=== PATIENT | male | born 1995 | race Caucasian/White ===

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

== ENCOUNTER → 2017-09-06 | Outpatient (CLI) | payer OTHER ==
[~2017-09-06] MED LIST: CETI10TA84 PO
--- NOTE | 2017-09-06 15:04 | DIAGNOSTIC IMAGING REPORT ---
AP VIEW OF BOTH WRISTS; 4 VIEWS RIGHT WRIST CLINICAL HISTORY: Right wrist pain an injury. FINDINGS: An AP clenched view of both wrists with 4 additional views of the right wrist are obtained. No prior studies are available for comparison at the time of dictation. The skeletal structures are well mineralized. No fracture is seen. The joint spaces of the right wrist are well-maintained. Mild soft tissue swelling is noted Over the right wrist. Survey images of the left wrist on the frontal view show no abnormality. IMPRESSION: Mild soft tissue swelling with no radiographic evidence of right wrist fracture. If there is strong clinical concern for occult fracture consider short-term radiographic follow-up. Electronically signed by: Km Churchill M.D. 09/06/2017 3:03 PM Dictated Date/Time: 09/06/2017 3:00 PM
--- NOTE | 2017-09-09 10:36 | CODING QUERY NO DIAGNOSIS ---
: 97 TREATMENT RENDERED WITHOUT A DIAGNOSIS To promote full compliance with coding requirements relating to patient care, physician participation is requested in all cases of varnish maker uncertainty. Please assist us with providing a diagnosis/symptom for the test(s) below: A diagnosis/symptom was not documented on your Order. A valid diagnosis/symptom is required to bill all insurances. Please remember that we are unable to code a diagnosis of rule out, probable, possible, questionable, or suspected. Tests that require a diagnosis: DOS: 09/06/17 * WRIST X RAY DIAGNOSIS: Provider Signature: Date: Thank you Praveena Escalera Health Information Management Once completed, please kindly fax back to [phone] For questions please call [phone]
== END | disposition home or self-care (01) ==
LOC: C.RDSM 15:08
PROVIDERS: ATTEND Family Medicine
DX: M25.531 Pain in right wrist (principal)